=== PATIENT | female | born 1995 | race Caucasian/White ===

== ENCOUNTER 2020-06-06 00:03 | Inpatient (IN) | payer MEDICAID, OTHER ==
[~2020-06-06] VITALS: Ht 154.9 cm; Wt 77.1 kg
[2020-06-06] MEDS ORDERED: PREN-176 PO (00:28)
[2020-06-06] MEDS ORDERED: FERR325T6 PO (00:47)
[2020-06-06] MEDS ORDERED: albuterol (00:47)
[2020-06-06] MEDS ORDERED: DEXT 5%/LR + PITOCIN 20UNITS/L 1,000 ML IV SCH (00:55)
[2020-06-06] MEDS ORDERED: NALOXONE HCL 0.4 MG/ML 1ML VIAL IM PRN (01:00)
[2020-06-06] MEDS ORDERED: CARBOPROST TROMETHAMINE 250 MCG/ML AMPUL IM PRN (01:00)
[2020-06-06] MEDS ORDERED: LIDOCAINE HCL 1% 20ML VIAL (Pyxis) INJ INFIL SCH (01:00)
[2020-06-06] MEDS ORDERED: BUTORPHANOL TARTRATE 2 MG/ML VIAL IV PRN (01:00)
[2020-06-06] MEDS ORDERED: MISOPROSTOL 100MCG TABLET VG SCH (01:00)
[2020-06-06] MEDS ORDERED: METHYLERGONOVINE MALEATE 0.2 MG/ML IM PRN (01:00)
[2020-06-06] MEDS: LACTATED RINGERS 1,000 ML IV SCH ×3 (01:15→19:17)
[2020-06-06 01:55] LABS: BASOPHILS % 0.3 % (0.0-2.0); EOSINOPHILS % 0.9 % (0.0-5.0); HEMATOCRIT. 34.6 % (36.0-48.0); HEMOGLOBIN. 11.7 g/dL (12.0-16.0); MEAN CORPUSCULAR HEMOGLOBIN 29.7 pg (28.0-32.0); MEAN CORPUSCULAR VOLUME 87.6 fL (81.0-99.0); MEAN PLATELET VOLUME 8.4 fl (7.4-10.4); MONOCYTES % 5.6 % (2.0-8.0); NEUTROPHILS % 71.2 % (40.0-76.0); PLATELET 293 x1000/uL (130-400); RED BLOOD CELL COUNT 3.95 mill/uL (4.2-5.4); RED CELL DISTRIBUTION WIDTH 14.8 % (11.6-14.6)
[2020-06-06] MEDS: MISOPROSTOL 100MCG TABLET VG SCH ×3 (01:56→14:11)
[2020-06-06] MEDS ORDERED: AMPICILLIN 2,000 MG in SODIUM CHLORIDE 0.9% 100 ML IV SCH (02:00)
[2020-06-06 02:12] LABS: CLARITY URINE CLEAR (CLEAR); COLOR URINE YELLOW (YELLOW); KETONES URINE NEGATIVE (NEGATIVE); LEUKOCYTE ESTERASE URINE 3+ (NEGATIVE); NITRITE URINE NEGATIVE (NEGATIVE); OCCULT BLOOD URINE NEGATIVE (NEGATIVE); PROTEIN URINE NEGATIVE (NEGATIVE); SPECIFIC GRAVITY URINE 1.009 (1.005-1.030); UROBILINOGEN URINE 0.2 E.U./dL (0.2-1.0)
[2020-06-06 02:26] LABS: *AMPHETAMINES SCREEN URINE NEGATIVE (NEGATIVE); *BARBITURATES SCREEN URINE NEGATIVE (NEGATIVE); *BENZODIAZEPINES SCREEN URINE NEGATIVE (NEGATIVE)
[2020-06-06 02:27] LABS: *COCAINE SCREEN URINE NEGATIVE (NEGATIVE); CANNABINOID URINE SCREEN NEGATIVE (NEGATIVE); METHADONE URINE SCREEN NEGATIVE (NEGATIVE); OPIATES URINE SCREEN NEGATIVE (NEGATIVE); PHENCYCLIDINE URINE SCREEN NEGATIVE (NEGATIVE)
[2020-06-06 02:38] LABS: HEPATITIS B SURFACE ANTIGEN NEGATIVE
[2020-06-06 03:18] LABS: INR 0.9; PARTIAL THROMBOPLASTIN TIME 25.5 sec (23.4-31.0); PROTHROMBIN TIME 9.8 sec (9.6-11.0)
[2020-06-06] MEDS: AMPICILLIN 1,000 MG in SODIUM CHLORIDE 0.9% 50 ML IV SCH ×3 (07:43→21:44)
[2020-06-07] MEDS ORDERED: ONDANSETRON HCL 4MG/2ML INJ IV PRN
[2020-06-07] MEDS ORDERED: ROPIVACAINE HCL/PF EPIDURAL 200 ML EPI SCH
[2020-06-07] MEDS ORDERED: METOCLOPRAMIDE HCL 10MG/2ML VIAL IV PRN
[2020-06-07] MEDS ORDERED: BUPIVACAINE HCL/PF 0.25% (2.5MG/ML) 10ML ONE (00:04)
[2020-06-07] MEDS: LACTATED RINGERS 1,000 ML IV SCH (00:30)
[2020-06-07] MEDS: ACETAMINOPHEN 325MG TABLET PO PRN (00:36)
[2020-06-07] MEDS: AMPICILLIN 1,000 MG in SODIUM CHLORIDE 0.9% 50 ML IV SCH ×4 (04:07→21:26)
[2020-06-07] MEDS ORDERED: FENTANYL CITRATE/PF 50MCG/ML 2ML VIAL ONE ×2 (12:22→20:18)
[2020-06-07] MEDS ORDERED: ROPIVACAINE HCL/PF EPIDURAL 200 ML EPI ONE (16:48)
[2020-06-07] MEDS ORDERED: CITRIC ACID/SODIUM CITRATE SOLN 30ML UDC PO NR (17:30)
[2020-06-07] MEDS ORDERED: MORPHINE SULFATE/PF 1MG/ML 10ML AMP ONE (17:42)
[2020-06-07] MEDS ORDERED: CEFAZOLIN SODIUM 1000MG/VIAL ONE ×2 (20:19→22:01)
[2020-06-07] MEDS ORDERED: OXYTOCIN 10 UNITS/ML 1ML ONE ×2 (20:19→22:01)
[2020-06-07] MEDS ORDERED: LIDOCAINE HCL 2%/EPINEPHRINE 1:100,000 20 ML VIAL INFIL ONE (21:00)
[2020-06-07] MEDS ORDERED: DIPHENHYDRAMINE 50MG/ML VIAL IV PRN ×2 (21:45)
[2020-06-07] MEDS ORDERED: KETOROLAC 30MG/ML VIAL IV SCH (21:45)
[2020-06-07] MEDS ORDERED: BUTORPHANOL TARTRATE 2 MG/ML VIAL IV PRN ×2 (21:45)
[2020-06-07] MEDS ORDERED: NALOXONE HCL 0.4 MG/ML 1ML VIAL IV PRN (21:45)
[2020-06-07] MEDS ORDERED: MIDAZOLAM HCL 2 MG/2 ML VIAL ONE ×2 (21:59→22:41)
[2020-06-07] MEDS ORDERED: ONDANSETRON HCL 4MG/2ML INJ ONE (22:26)
[2020-06-07] MEDS ORDERED: KETAMINE HCL 50 MG/ML 10ML ONE (22:30)
[2020-06-07] MEDS ORDERED: DIPHENHYDRAMINE 50MG/ML VIAL ONE (23:06)
[2020-06-07] MEDS ORDERED: KETOROLAC 60MG/2ML VIAL IM ONE (23:07)
[2020-06-07] MEDS ORDERED: RHO(D) IMMUNE GLOBULIN 300 MCG/SYR IM PRN (23:30)
[2020-06-07] MEDS ORDERED: IBUPROFEN 400MG TABLET PO PRN (23:30)
[2020-06-07] MEDS ORDERED: BISACODYL 10MG SUPP PR PRN (23:30)
[2020-06-07] MEDS ORDERED: DEXT 5%/LR + PITOCIN 20UNITS/L 1,000 ML IV SCH (23:30)
[2020-06-08] VITALS (8 sets, daily range): BP systolic 109–132; BP diastolic 73–88
[2020-06-08] MEDS: KETOROLAC 30MG/ML VIAL IV PRN ×3 (02:00→15:29)
[2020-06-08 06:59] LABS: BASOPHILS % 0.1 % (0.0-2.0); HEMATOCRIT. 34.1 % (36.0-48.0); HEMOGLOBIN. 11.3 g/dL (12.0-16.0); LYMPHOCYTES % 9.8 % (20.0-50.0); MEAN CORPUSCULAR HEMOGLOBIN 29.4 pg (28.0-32.0); MEAN CORPUSCULAR VOLUME 88.5 fL (81.0-99.0); MEAN PLATELET VOLUME 8.8 fl (7.4-10.4); MONOCYTES % 5.6 % (2.0-8.0); NEUTROPHILS % 84.5 % (40.0-76.0); PLATELET 209 x1000/uL (130-400); RED BLOOD CELL COUNT 3.86 mill/uL (4.2-5.4); RED CELL DISTRIBUTION WIDTH 14.9 % (11.6-14.6)
[2020-06-08] MEDS: IBUPROFEN 800MG TABLET PO PRN (22:06)
[2020-06-09] VITALS: BP 119/78
[2020-06-09 04:00] VITALS: BP 114/76
[2020-06-09] MEDS: IBUPROFEN 800MG TABLET PO PRN (05:04)
[2020-06-09 07:55] VITALS: BP 109/72
[2020-06-09] MEDS: ACETAMINOPHEN 325MG TABLET PO PRN ×2 (09:30→14:39)
[2020-06-09] MEDS ORDERED: IBUP-2030 PO (14:20)
[2020-06-09 14:35] VITALS: BP 123/81
[2020-06-09 16:00] VITALS: BP 123/81
== END 2020-06-09 17:10 | disposition home or self-care (01) | DRG 540 ==
LOC: 8 EST LDRP 00:03 → OBSVTOIN 00:03 → 8 EST A/PP 06-08 01:30
PROVIDERS: ADMIT Obstetrics & Gynecology; ATTEND Obstetrics & Gynecology
PROC: 10D00Z1 Extraction of Products of Conception, Low, Open Approach (ICD-10-PCS; principal; 2020-06-07)
DX: O62.2 Other uterine inertia (principal); O77.0 Labor and delivery complicated by meconium in amniotic fluid; O99.12 Other diseases of the blood and blood-forming organs and certain disorders involving the immune mechanism complicating childbirth; O99.519 Diseases of the respiratory system complicating pregnancy, unspecified trimester; O99.02 Anemia complicating childbirth; O61.9 Failed induction of labor, unspecified; D62 Acute posthemorrhagic anemia; D72.829 Elevated white blood cell count, unspecified; J45.909 Unspecified asthma, uncomplicated; Z3A.39 39 weeks gestation of pregnancy; Z83.3 Family history of diabetes mellitus; Z37.0 Single live birth; O76 Abnormality in fetal heart rate and rhythm complicating labor and delivery
CPT/HCPCS: 36415; 76815; 80305; 81003; 85025; 86592; 86703; 86762; 86850; 86900; 87340; 88307; 99281; G0378; J0290; J0690; J1200; J1885; J2250; J2274; J2405; J2590; J2795; J3010; J3490; J7050; J7120

== ENCOUNTER 2020-07-09 01:58 | Emergency (ER) | payer MEDICAID, OTHER ==
[~2020-07-09] VITALS: Ht 154.9 cm; Wt 65.0 kg
[~2020-07-09 01:58] MED LIST: FERR325T6 PO; IBUP-2030 PO; PREN-176 PO; albuterol
[2020-07-09 02:27] VITALS: BP 130/77
== END 2020-07-09 03:10 | disposition left against medical advice (07) ==
LOC: ER 01:58
DX: R06.02 Shortness of breath (principal); Z53.21 Procedure and treatment not carried out due to patient leaving prior to being seen by health care provider
CPT/HCPCS: 93005

== ENCOUNTER 2022-01-14 14:44 | Inpatient (IN) | payer OTHER ==
[~2022-01-14] VITALS: Ht 154.9 cm; Wt 74.8 kg
[2022-01-14] MEDS: LACTATED RINGERS 1,000 ML IV SCH ×2 (16:00→17:06)
[2022-01-14 16:37] LABS: BASOPHILS % 0.3 % (0.0-2.0); EOSINOPHILS % 0.2 % (0.0-5.0); HEMATOCRIT. 36.4 % (36.0-48.0); MEAN CORPUSCULAR HEMOGLOBIN 28.3 pg (28.0-32.0); MEAN CORPUSCULAR VOLUME 86.1 fL (81.0-99.0); MEAN PLATELET VOLUME 8.7 fl (7.4-10.4); MONOCYTES % 3.4 % (2.0-8.0); NEUTROPHILS % 76.1 % (40.0-76.0); PLATELET 285 x1000/uL (130-400); RED BLOOD CELL COUNT 4.23 mill/uL (4.2-5.4); RED CELL DISTRIBUTION WIDTH 14.5 % (11.6-14.6)
[2022-01-14 16:48] LABS: CLARITY URINE CLEAR (CLEAR); COLOR URINE YELLOW (YELLOW)
[2022-01-14 16:49] LABS: PROTEIN URINE NEGATIVE (NEGATIVE); SPECIFIC GRAVITY URINE 1.007 (1.005-1.030)
[2022-01-14 16:50] LABS: INR 0.9; PARTIAL THROMBOPLASTIN TIME 26.8 sec (23.4-31.0); PROTHROMBIN TIME 9.8 sec (9.6-11.0)
[2022-01-14 16:50] LABS: KETONES URINE 1+ (NEGATIVE); NITRITE URINE NEGATIVE (NEGATIVE); OCCULT BLOOD URINE NEGATIVE (NEGATIVE); UROBILINOGEN URINE 0.2 E.U./dL (0.2-1.0)
[2022-01-14 16:51] LABS: LEUKOCYTE ESTERASE URINE 3+ (NEGATIVE)
[2022-01-14 17:01] LABS: *AMPHETAMINES SCREEN URINE NEGATIVE (NEGATIVE); *BARBITURATES SCREEN URINE NEGATIVE (NEGATIVE)
[2022-01-14 17:02] LABS: *BENZODIAZEPINES SCREEN URINE NEGATIVE (NEGATIVE); *COCAINE SCREEN URINE NEGATIVE (NEGATIVE); CANNABINOID URINE SCREEN NEGATIVE (NEGATIVE); METHADONE URINE SCREEN NEGATIVE (NEGATIVE); OPIATES URINE SCREEN NEGATIVE (NEGATIVE); PHENCYCLIDINE URINE SCREEN NEGATIVE (NEGATIVE)
[2022-01-14] MEDS ORDERED: MORPHINE SULFATE/PF 1MG/ML 10ML AMP ONE (17:28)
[2022-01-14] MEDS ORDERED: CEFAZOLIN SODIUM 1000MG/VIAL ONE (17:57)
[2022-01-14] MEDS ORDERED: ONDANSETRON HCL 4MG/2ML INJ ONE (17:57)
[2022-01-14] MEDS ORDERED: OXYTOCIN 10 UNITS/ML 1ML ONE (18:38)
[2022-01-14] MEDS ORDERED: RHO(D) IMMUNE GLOBULIN 300 MCG/SYR IM PRN (18:45)
[2022-01-14] MEDS ORDERED: IBUPROFEN 400MG TABLET PO PRN (18:45)
[2022-01-14] MEDS ORDERED: BISACODYL 10MG SUPP PR PRN (18:45)
[2022-01-14] MEDS ORDERED: HYDROMORPHONE HCL/PF 2MG/ML CPJ IM PRN (18:45)
[2022-01-14] MEDS ORDERED: ONDANSETRON HCL 4MG/2ML INJ IV PRN (19:15)
[2022-01-14] MEDS ORDERED: METOCLOPRAMIDE HCL 10MG/2ML VIAL IV PRN (19:15)
[2022-01-14] MEDS ORDERED: DIPHENHYDRAMINE 50MG/ML VIAL IV PRN (19:15)
[2022-01-14] MEDS ORDERED: MORPHINE SULFATE 10 MG/ML CPJ IV PRN (19:15)
[2022-01-14] MEDS ORDERED: NALOXONE HCL 0.4 MG/ML 1ML VIAL IV PRN (19:15)
[2022-01-14] MEDS: KETOROLAC 30MG/ML VIAL IV SCH (20:29)
[2022-01-14] MEDS: DEXT 5%/LR + PITOCIN 20UNITS/L 1,000 ML IV SCH (20:30)
[2022-01-14 21:15] VITALS: BP 115/72
[2022-01-14 21:45] VITALS: BP 119/74
[2022-01-14 22:15] VITALS: BP 118/74
[2022-01-15] MEDS: KETOROLAC 30MG/ML VIAL IV SCH (03:22)
[2022-01-15 03:30] VITALS: BP 110/71
[2022-01-15] MEDS: DEXT 5%/LR + PITOCIN 20UNITS/L 1,000 ML IV SCH (05:18)
[2022-01-15 07:30] VITALS: BP 119/69
[2022-01-15 07:55] LABS: BASOPHILS % 0.3 % (0.0-2.0); EOSINOPHILS % 0.1 % (0.0-5.0); HEMATOCRIT. 32.6 % (36.0-48.0); HEMOGLOBIN. 11.3 g/dL (12.0-16.0); LYMPHOCYTES % 16.3 % (20.0-50.0); MEAN CORPUSCULAR HEMOGLOBIN 29.8 pg (28.0-32.0); MEAN CORPUSCULAR VOLUME 85.9 fL (81.0-99.0); MEAN PLATELET VOLUME 8.6 fl (7.4-10.4); MONOCYTES % 3.9 % (2.0-8.0); NEUTROPHILS % 79.4 % (40.0-76.0); PLATELET 245 x1000/uL (130-400); RED CELL DISTRIBUTION WIDTH 14.5 % (11.6-14.6)
[2022-01-15] MEDS: FERROUS SULFATE 325MG TABLET PO SCH ×3 (08:49→18:11)
[2022-01-15] MEDS: PRENATAL VIT/FE FUMARATE/FA TABLET PO SCH (08:49)
[2022-01-15] MEDS: IBUPROFEN 800MG TABLET PO PRN ×2 (12:58→20:54)
[2022-01-15 15:37] VITALS: BP 106/67
[2022-01-15 20:00] VITALS: BP 108/68
[2022-01-16 04:30] VITALS: BP 110/68
[2022-01-16] MEDS: IBUPROFEN 800MG TABLET PO PRN ×3 (04:42→21:33)
[2022-01-16 08:30] VITALS: BP 105/62
[2022-01-16] MEDS: PRENATAL VIT/FE FUMARATE/FA TABLET PO SCH (12:21)
[2022-01-16] MEDS: FERROUS SULFATE 325MG TABLET PO SCH (12:22)
[2022-01-16 16:04] VITALS: BP 121/70
[2022-01-16 19:30] VITALS: BP 113/70
[2022-01-17] MEDS ORDERED: MEASLES,MUMPS&RUBELLA VACCINE 1 VIAL SUBCUT ONE
[2022-01-17 04:00] VITALS: BP 116/79
[2022-01-17] MEDS: PRENATAL VIT/FE FUMARATE/FA TABLET PO SCH (08:28)
[2022-01-17] MEDS: FERROUS SULFATE 325MG TABLET PO SCH (08:29)
[2022-01-17] MEDS: IBUPROFEN 800MG TABLET PO PRN (08:29)
[2022-01-17 08:30] VITALS: BP 111/65
== END 2022-01-17 12:30 | disposition home or self-care (01) | DRG 540 ==
LOC: 8 EST LDRP 14:44 → OBSVTOIN 14:44 → 8EST 21:24
PROVIDERS: ADMIT Obstetrics & Gynecology; ATTEND Obstetrics & Gynecology
PROC: 10D00Z1 Extraction of Products of Conception, Low, Open Approach (ICD-10-PCS; principal; 2022-01-14)
DX: O34.211 Maternal care for low transverse scar from previous cesarean delivery (principal); O69.81X0 Labor and delivery complicated by cord around neck, without compression, not applicable or unspecified; Z37.0 Single live birth; Z3A.38 38 weeks gestation of pregnancy; Z20.822 Contact with and (suspected) exposure to COVID-19
CPT/HCPCS: 36415; 80305; 81003; 85025; 86592; 86703; 86762; 86850; 86900; 87340; 87426; 88307; 90707; 99281; G0378; J0690; J1885; J2274; J2405; J2590; J2765; J7120